=== PATIENT | male | born 1975 ===

== ENCOUNTER 2024-09-29 07:09 | Emergency (ER) | payer MEDICAID, SELFPAY ==
[2024-09-29 07:10] VITALS: BP 167/101; PULSE 86; RESP 16; TEMP 36.6; O2SAT 99
[2024-09-29 07:22] VITALS: BP 167/101; PULSE 86; RESP 16; TEMP 36.6; O2SAT 99
--- NOTE | 2024-09-29 07:23 | ED.GENADUL_ITS ---
Discharge Plan Disposition Patient Disposition: Home Condition: Stable Discharge Details Clinical Impression: Alcohol intoxication Primary Care Provider: Unknown,Unknown ED Provider: Jeffrey Moreno Home Meds and New Rx's Prescriptions: New lisinopril 10 mg tablet 10 mg PO DAILY Qty: 30 0RF Continued lisinopril 10 mg tablet 10 mg PO DAILY fluoxetine 10 mg capsule 10 mg PO DAILY mirtazapine [Remeron] .ROUTE Discharge Instructions Additional Instructions: I am providing you a 30-day prescription for your blood pressure medication lisinopril. I would recommend establishing care with a primary care provider for continued management of your blood pressure. Return to the emergency department if you feel more ill or feel you are suffering from emergent medical process. HPI General Mode of arrival: ambulatory . Date/Time Provider Initiated Documentation: 09/29/24 07:10 . Limitations to Documentation: no limitations . Information obtained by: patient . History of Present Illness 49 year old M presents to the emergency department with the chief complaint of I don't know why I am here, Patient started experiencing this unknown and it has been constant. No relieving factors improve symptom(s), No exacerbating factors reported . Patient notes no other symptoms.. Patient did receive the following treatments prior to arrival, none Related Data Home Medications ?Medication ?Instructions ?Recorded ?Confirmed fluoxetine 10 mg capsule 10 mg PO DAILY 09/29/24 09/29/24 lisinopril 10 mg tablet 10 mg PO DAILY 09/29/24 09/29/24 lisinopril 10 mg tablet 10 mg PO DAILY #30 tabs 09/29/24 mirtazapine .ROUTE 09/29/24 Previous Rx's ?Medication ?Instructions ?Recorded lisinopril 10 mg tablet 10 mg PO DAILY #30 tabs 09/29/24 Allergies Allergy/AdvReac Type Severity Reaction Status Date / Time amoxicillin AdvReac Unknown Other (See Verified 09/29/24 07:21 Comment) General Stated Complaint: GenMedical TRACE: 3 Review of Systems All systems reviewed & are unremarkable except as noted in HPI and below Constitutional Constitutional: Denies chills, Denies fever(s) and Denies weakness Cardiovascular Cardiovascular: Denies chest pain and Denies dyspnea Respiratory Respiratory: Denies dyspnea Gastrointestinal Gastrointestinal: Denies abdominal pain and Denies vomiting Neurologic Neurologic: Denies weakness Psychiatric Psychiatric: Denies depression Exam Const General: no acute distress Orientation: alert HENMT Head: normal to inspection Ears: external ears normal General nose exam: external nose normal Mouth: moist mucous membranes Eyes General: appearance normal, both eyes and all related structures Neck Neck: normal visual inspection Resp Effort & Inspection: normal respiratory effort and able to speak in complete sentences Auscultation: clear to auscultation bilaterally Cardio Jugular venous pressure: no JVD Rate: regular rate Heart Sounds: no murmurs Skin General skin exam: no rashes or lesions noted Neuro General: patient alert and patient oriented x3 Extrem General: normal to inspection Psych Mental Status: mental status grossly normal Attitude: cooperative Course Vital Signs Vital signs: Vital Signs Temperature 36.6 C 09/29/24 07:10 Pulse 86 09/29/24 07:10 Respiratory Rate 16 09/29/24 07:10 Blood Pressure 167/101 H 09/29/24 07:10 Pulse Oximetry 99 09/29/24 07:10 Temperature 36.6 C 09/29/24 07:22 Temperature Source Temporal Artery Scan 09/29/24 07:22 Pulse 86 09/29/24 07:22 Respiratory Rate 16 09/29/24 07:22 Blood Pressure 167/101 H 09/29/24 07:22 Blood Pressure Position Sitting 09/29/24 07:22 Pulse Oximetry 99 09/29/24 07:22 Oxygen Delivery Method Room Air 09/29/24 07:22 Oxygen Flow Rate 0 09/29/24 07:22 Pain Level 0 09/29/24 07:22 Medical Decision Making 49-year-old male with a history of hypertension and depression comes in after an alcohol and was apprehended by police. He apparently was brought here for medical clearance before going to shelter. Patient is ambulating with normal gait and is oriented x 4 with clear speech. He is currently clinically sober cooperative. He denies any headache, chest pain, difficulty breathing, abdominal pain, fevers, chills. He has clear lung sounds, no abdominal tenderness, moving all extremities with normal strength. He has noted to be mildly hypertensive at 160 but states he has not taken his blood pressure medicine for few weeks for unclear reasons. He denies any HI or SI. I do not feel any lab or imaging testing is indicated. I am going to provide him with a 30-day prescription for his blood pressure medication and advised to establish with a primary care provider soon as he can. Return precautions given Quality:[facility] Related Social Needs: No Data to Display PFSH All Active Problems (Updated 09/29/24 @ 07:24 by Jeffrey Moreno MD) Alcohol intoxication (Acute) Social History Smoking/Tobacco Use Status: Current every day Tobacco Type: cigarettes Smoking risk assessment performed?: Yes Alcohol Intake: current Alcohol Intake frequency: a few times a month Alcohol type: beer Drug use: Occasionally Substance use type: marijuana PAWSS Have you Been Recently Intoxicated or Drunk Within the Last 30 days?: Yes Have you Ever Experienced Previous Episodes of Alcohol Withdrawal?: Yes Have you ever Experienced Withdrawal Seizures?: No Have you ever Experienced Delirium Tremens(DT)s?: No Have you ever undergone Alcohol Rehabilitation Treatment (i.e, inpt ot outpatient treatment programs)?: Yes Have you ever Experienced Blackouts?: No Have you ever Combined Alcohol with other Downers within the last 90 days?: No Have you ever Combined Alcohol with any other Substance of Abuse during the last 90 days?: No Result: 3
== END 2024-09-29 07:32 | disposition home or self-care (01) ==
LOC: ER 07:38
PROVIDERS: Emergency Provider Emergency Medicine
DX: F10.120 Alcohol abuse with intoxication, uncomplicated (principal); I10 Essential (primary) hypertension; F17.210 Nicotine dependence, cigarettes, uncomplicated
CPT/HCPCS: 99283